=== PATIENT | female | born 1950 | race Caucasian/White ===

== ENCOUNTER 2017-07-10 18:31 | Inpatient (IN) | payer MEDICARE, MEDICAID ==
[~2017-07-10] VITALS: Ht 162.6 cm; Wt 113.1 kg
[2017-07-10 19:28] LABS: BASO # 0.1 x10^3/uL (0.0-0.2); BASO % 1 % (0-3); EOS # 0.3 x10^3/uL (0.0-0.7); EOS % 2 % (0-3); HEMATOCRIT 31.9 % (36.0-47.0); HEMOGLOBIN 10.1 g/dL (12.0-15.5); LYMPH # 3.5 x10^3/uL (1.0-4.8); LYMPH % 22 % (24-48); MEAN CORPUSCULAR HEMOGLOBIN 24 pg (25-35); MEAN CORPUSCULAR HGB CONC 32 g/dL (31-37); MEAN CORPUSCULAR VOLUME 77 fL (79-100); MONO # 1.3 x10^3/uL (0.0-1.1); MONO % 8 % (0-9); NEUT # 10.4 x10^3uL (1.8-7.7); NEUT % 67 % (31-73); PLATELET COUNT 473 x10^3/uL (140-400); RED BLOOD COUNT 4.16 x10^6/uL (3.50-5.40); RED CELL DISTRIBUTION WIDTH 18.2 % (11.5-14.5); WHITE BLOOD COUNT 15.6 x10^3/uL (4.0-11.0)
--- NOTE | 2017-07-10 19:30 | EKG ---
[address] [address] Test Date: 2017-07-10 Test Time: 19:15:13 Pat Name: RADHA AZEVEDO Department: Room: Gender: F [place] Tender: : 1950 Requested By: WESLY BLACKBURN Order Number: [id number] Reading MD: Claude Bañuelos MD Measurements Intervals [place] Rate: 83 P: 54 KS: 132 QRS: 0 QRSD: 94 T: 5 QT: 390 QTc: 459 Interpretive Statements SINUS RHYTHM Electronically Signed On 07-14-2017 16:42:41 CDT by Claude Bañuelos MD
[2017-07-10 19:35] LABS: CALCIUM 9.4 mg/dL (8.5-10.1); CREATININE 0.8 mg/dL (0.6-1.0); GFR 72.2; POTASSIUM 3.1 mmol/L (3.5-5.1)
[2017-07-10 19:43] LABS: CLARITY,URINE HAZY; COLOR,URINE YELLOW; GLUCOSE,URINE NEG (NEG)
[2017-07-10] MEDS ORDERED: ALPRAZolam 0.25 MG TABLET PO ONE (19:45)
[2017-07-10 19:46] LABS: BACTERIA,URINE FEW /HPF (0-FEW); BILIRUBIN,URINE NEG (NEG); NITRITE,URINE NEG (NEG); SQUAMOUS EPITHELIAL CELL,UR MANY /LPF; UROBILINOGEN,URINE 0.2 mg/dL (0.2 mg/dL)
[2017-07-10 19:47] LABS: HYALINE CASTS, URINE MOD /HPF
[2017-07-10] MEDS ORDERED: CONTRAST GIVEN MC PRN (20:45)
[2017-07-10] MEDS ORDERED: IOHEXOL 300 MG/ML 75 ML VIAL. IV ONE (20:45)
[2017-07-10 21:47] LABS: % LYMPHS 24 % (24-48); % MONOS 11 % (0-10); % SEGS 65 % (35-66)
[2017-07-10 21:50] LABS: PLT ESTIMATE INCREASED (ADEQUATE)
[2017-07-10 21:51] LABS: HYPOCHROMIA SLIGHT
[2017-07-10 21:53] LABS: ANISOCYTOSIS SLIGHT
[2017-07-10 21:59] LABS: STOMATOCYTES PRESENT; TARGET CELLS FEW
--- NOTE | 2017-07-10 22:02 | RAD ---
CT abdomen and pelvis with contrast 07/10/2017 Clinical indication: Severe abdominal pain, nausea and leukocytosis. COMPARISON: None. TECHNIQUE: Multiple CT images of the abdomen and pelvis were obtained following the intravenous and ministration of 75 mL Omnipaque 300. *One or more of the following individualized dose reduction techniques were utilized for this examination: 1. Automated exposure control. 2. Adjustment of the mA and/or kV according to patient size. 3. Use of iterative reconstruction technique. FINDINGS: Heart size is normal. Visualized lung bases are clear. Liver, gallbladder, spleen, adrenal glands are grossly unremarkable. Mild fatty atrophy of the pancreas. There are few bilateral renal hypodensities which are too small to definitively characterize, the largest in the medial superior pole left kidney measuring 0.6 cm series 2/image 28. No hydronephrosis. Abdominal aorta is normal in caliber with mild aortoiliac calcified atheromatous disease. Total colectomy and right lower quadrant ileostomy. There are few mildly dilated fluid-filled distal small bowel loops just proximal to the ileostomy with gas and fluid within the ostomy. No discrete transition point. No pneumatosis intestinalis or pneumoperitoneum. There is posterior displacement of the uterus consistent with the total colectomy. Mildly distended unopacified urinary bladder is unremarkable. There are few mildly prominent bilateral inguinal lymph nodes, likely reactive. Mild bilateral hip osteoarthritis. There is transitional lumbosacral sacral vertebral anatomy with partial sacralization at L5. Grade 1 anterolisthesis L3 on L4. Age-indeterminate moderate compression deformity at T12 with mild bony retropulsion and estimated 50 percent vertebral body height loss. There is an age-indeterminate mild L3 superior endplate compression deformity with estimated 20 percent edema body height loss no significant bony retropulsion. At L3-L4, disc degeneration and facet hypertrophy resulting in severe spinal canal narrowing. IMPRESSION: 1. Total colectomy and right lower quadrant ileostomy. 2. Mildly dilated distal small bowel loops proximal to the ileostomy site, however there is fluid and gas distal to the ostomy site, concerning for a low-grade partial small bowel obstruction and the ostomy may be a potential site. 3. Moderate T12 and mild L3 compression deformities which are age indeterminate. Correlation with point tenderness is recommended. 4. Disc degeneration and facet hypertrophy resulting in severe spinal canal narrowing at L3-L4. Electronically signed by: Greyson Durán MD (07/10/2017 9:59 PM) [facility]
[2017-07-10] MEDS ORDERED: IV NORMAL SALINE 1,000ML 1,000 ML IV ONE (22:15)
[2017-07-10] MEDS ORDERED: cefTRIAXone IV Push 1 GM VIAL. IVP ONE (22:30)
[2017-07-10] MEDS ORDERED: KETOROLAC 15 MG/ML VIAL. IV ONE (23:15)
[2017-07-10] MEDS ORDERED: POTASSIUM CHLORIDE 20 MEQ/15 ML ORAL LIQUID. PO ONE (23:45)
[2017-07-11] MEDS ORDERED: MORPHINE SULFATE 2 MG/ML DISP.SYRIN. IV PRN
[2017-07-11] MEDS ORDERED: IV NORMAL SALINE 1,000ML 1,000 ML IV SCH
--- NOTE | 2017-07-11 00:35 | NUR ---
Pt was admitted from ER to [facility] room 125 via [facility], accompanied by EMS and nursing staff. Pt transferred from [facility] to bed x3 assist. Admission assessment completed. Pt here for UTI, Abd pain & Depression. Pt had a SA attempt on 07/05/17 after having amputation sx on her left distal foot. Pt took scissors to bilateral wrist afterwards but claims it was "a reaction to my anesthesia from my foot surgery. I called for help right after I did it. I feel bad about it and I am a [place] woman." Pt currently denies any SI/SA. Pt was admitted to [facility] recently for depression and SA from 07/05/17-07/08/17. Pt has right quadrant Ostomy but hasn't had a BM for "over 2 days." Site/bag changed, no stool noted in bag. Wound photos taken of bilateral wrist, left amputation site and ostomy site. Home medications & health history reviewed. IVF started per order. Pt lives at [facility] and has been a resident "for about 9 yeras." SCDs for VTE. Pt UTD on pneumonia vaccine. Pt was given written information regarding hospital policies, unit procedures and contact persons. Valuables were checked r/t suicide precautions. Call light within reach. Pt is NPO r/t CT Abd. showing ? partial SBO. Wound care, Case management & Dr Hill consulted. Pt placed on Q15min check based on medium Suicide risk Lethality assessment.
[2017-07-11 00:49] VITALS: BP 112/71
[2017-07-11] MEDS ORDERED: ONDANSETRON PF 4 MG/2 ML VIAL. IV PRN ×2 (02:00)
[2017-07-11] MEDS: IV NORMAL SALINE 1,000ML 1,000 ML IV SCH ×2 (02:00→12:44)
[2017-07-11] MEDS: MORPHINE SULFATE 4 MG/ML DISP.SYRIN. IV PRN ×5 (02:10→20:44)
[2017-07-11] MEDS: LORazepam 2 MG/ML VIAL IV PRN ×4 (02:10→17:41)
[2017-07-11] MEDS ORDERED: ATOR10TA60 PO (02:29)
[2017-07-11] MEDS ORDERED: GABA600T2 PO (02:29)
[2017-07-11] MEDS ORDERED: ROFL500T7 PO (02:29)
[2017-07-11] MEDS ORDERED: HYDR12.53 PO (02:29)
[2017-07-11] MEDS ORDERED: FLUT12HF3 IH (02:29)
[2017-07-11] MEDS ORDERED: POLY15DR27 OU (02:29)
[2017-07-11] MEDS ORDERED: SOLI10TA2 PO (02:29)
[2017-07-11] MEDS ORDERED: PANT20TA58 PO (02:29)
[2017-07-11] MEDS ORDERED: BUSP5TAB PO (02:29)
[2017-07-11] MEDS ORDERED: LORA10TA68 PO (02:29)
[2017-07-11] MEDS ORDERED: FLUT9.9S NS (02:29)
[2017-07-11] MEDS ORDERED: METO50TA4 PO (02:29)
[2017-07-11] MEDS ORDERED: HYDR-2762 PO (02:35)
[2017-07-11] MEDS ORDERED: TIZA4TAB8 PO (02:35)
[2017-07-11] MEDS ORDERED: QUET25TA PO (02:35)
[2017-07-11] MEDS ORDERED: TRAZ-90 PO (02:35)
[2017-07-11] MEDS ORDERED: DULO30CA2 PO (02:35)
[2017-07-11] MEDS ORDERED: QUET100T4 PO (02:35)
[2017-07-11] MEDS ORDERED: SODI45SP4 NS (02:45)
[2017-07-11] MEDS ORDERED: IPRA3AMP NEB (02:45)
[2017-07-11] MEDS ORDERED: MAG360OR24 PO (02:45)
[2017-07-11] MEDS ORDERED: PROM25TA10 PO (02:45)
[2017-07-11] MEDS ORDERED: GUAI600T47 PO (02:45)
[2017-07-11] MEDS ORDERED: ACET325T9 PO (02:45)
[2017-07-11] MEDS ORDERED: GUAI-66 PO (02:45)
[2017-07-11] MEDS ORDERED: ALBU6.7H IH (02:45)
[2017-07-11] MEDS ORDERED: MAGN400O7 PO (02:45)
[2017-07-11] MEDS ORDERED: NYST60PO TP (02:56)
[2017-07-11] MEDS ORDERED: HYDR453.3 TP (02:56)
[2017-07-11] MEDS ORDERED: PALI117D IM (02:56)
[2017-07-11] MEDS ORDERED: AMMO385C5 TP (02:56)
[2017-07-11] MEDS ORDERED: MENT118G TP (02:56)
--- NOTE | 2017-07-11 05:17 | PHYS DOC ---
Past History Past Medical History: Anxiety, Depression, Schizophrenia Alcohol Use: None Drug Use: None Adult General Chief Complaint Chief Complaint: PSYCH EVALUATION HPI HPI 66-year-old female with a history of anxiety depression and bipolar disease schizophrenia insomnia and severe ulcerative colitis which required a total colectomy and ileostomy. Now presents to the emergency department for clearance for psychiatric evaluation. Patient has been depressed and recently used scissors to make some lacerations on her wrist. These were sutured have been healing well. Patient complains of mid abdominal pain and thinks that her ileostomy may be "blocked" as it has not had as much output as she would expect over the last 2 days. Patient also had a surgery on her left foot within the last week to remove some devitalized toes. The surgical site was due for a wound check tomorrow but she states her postoperative course has been unremarkable. Patient currently denies any suicidality and states she has no intent to injure herself again Review of Systems Review of Systems Constitutional: Denies fever or chills [] Eyes: Denies change in visual acuity, redness, or eye pain [] HENT: Denies nasal congestion or sore throat [] Respiratory: Denies cough or shortness of breath [] Cardiovascular: No additional information not addressed in HPI [] GI: Denies abdominal pain, nausea, vomiting, bloody stools or diarrhea [] : Denies dysuria or hematuria [] Musculoskeletal: Denies back pain or joint pain [] Integument: Denies rash or skin lesions [] Neurologic: Denies headache, focal weakness or sensory changes [] Endocrine: Denies polyuria or polydipsia [] All other systems were reviewed and found to be within normal limits, except as documented in this note. Current Medications Current Medications Current Medications Medications (Trade) Dose Ordered Sig/Deion Start Time Stop Time Status Last Admin Dose Admin Alprazolam (Xanax) 0.5 mg 1X ONCE 07/10/17 19:45 07/10/17 19:46 DC 07/10/17 19:52 0.5 MG Ceftriaxone Sodium 1 gm/ Sodium Chloride 50 ml @ 100 mls/hr 1X ONCE 07/10/17 22:15 07/10/17 22:44 UNV Ceftriaxone Sodium (Rocephin) 1 gm 1X ONCE 07/10/17 22:30 07/10/17 22:31 DC 07/10/17 22:56 1 GM Info (Do NOT chart on this entry -- for MONITORING) 1 each PRN DAILY PRN 07/10/17 20:45 07/12/17 20:44 Iohexol (Omnipaque 300 Mg/ml) 75 ml 1X ONCE 07/10/17 20:45 07/10/17 20:46 DC 07/10/17 20:54 75 ML Ketorolac Tromethamine (Toradol) 15 mg 1X ONCE 07/10/17 23:15 07/10/17 23:29 DC 07/10/17 23:15 15 MG Sodium Chloride 1,000 ml @ 125 mls/hr 1X ONCE 07/10/17 22:15 07/11/17 06:14 07/10/17 22:57 125 MLS/HR Allergies Allergies Allergies Coded Allergies Type Severity Reaction Last Updated Verified oxycodone Allergy Mild 07/10/17 Yes Physical Exam Physical Exam Constitutional: Well developed, well nourished, no acute distress, non-toxic appearance. [] HENT: Normocephalic, atraumatic, bilateral external ears normal, oropharynx moist, no oral exudates, nose normal. [] Eyes: PERRLA, EOMI, conjunctiva normal, no discharge. [] Neck: Normal range of motion, no tenderness, supple, no stridor. [] Cardiovascular:Heart rate regular rhythm, no murmur [] Lungs & Thorax: Bilateral breath sounds clear to auscultation [] Abdomen: Bowel sounds normal, soft, no tenderness, no masses, no pulsatile masses. [] Skin: Warm, dry, no erythema, no rash. Healing wrist lacerations with sutures in place. [] Back: No tenderness, no CVA tenderness. [] Extremities: No tenderness, no cyanosis, no clubbing, ROM intact, no edema. Dressing on left foot removed for inspection. Surgical wound clean and dry and intact with no dehiscence or purulent drainage. No fluctuance or crepitus erythema or warmth.[] Neurologic: Alert and oriented X 3, normal motor function, normal sensory function, no focal deficits noted. [] Psychologic: Depressed mood and flat affect, judgement normal Current Patient Data Vital Signs Vital Signs Date Time Temp Pulse Resp B/P (MAP) Pulse Ox O2 Delivery O2 Flow Rate FiO2 07/11/17 02:45 16 Room Air 07/11/17 00:49 98.1 87 112/71 (85) 94 Lab Results Laboratory Tests Test 07/10/17 19:08 07/11/17 00:30 White Blood Count 15.6 x10^3/uL (4.0-11.0) H Red Blood Count 4.16 x10^6/uL (3.50-5.40) Hemoglobin 10.1 g/dL (12.0-15.5) L Hematocrit 31.9 % (36.0-47.0) L Mean Corpuscular Volume 77 fL (79-100) L Mean Corpuscular Hemoglobin 24 pg (25-35) L Mean Corpuscular Hemoglobin Concent 32 g/dL (31-37) Red Cell Distribution Width 18.2 % (11.5-14.5) H Platelet Count 473 x10^3/uL (140-400) H Neutrophils (%) (Auto) 67 % (31-73) Lymphocytes (%) (Auto) 22 % (24-48) L Monocytes (%) (Auto) 8 % (0-9) Eosinophils (%) (Auto) 2 % (0-3) Basophils (%) (Auto) 1 % (0-3) Neutrophils # (Auto) 10.4 x10^3uL (1.8-7.7) H Lymphocytes # (Auto) 3.5 x10^3/uL (1.0-4.8) Monocytes # (Auto) 1.3 x10^3/uL (0.0-1.1) H Eosinophils # (Auto) 0.3 x10^3/uL (0.0-0.7) Basophils # (Auto) 0.1 x10^3/uL (0.0-0.2) Segmented Neutrophils % 65 % (35-66) Lymphocytes % 24 % (24-48) Monocytes % 11 % (0-10) H Platelet Estimate Increased (ADEQUATE) Hypochromasia Slight Anisocytosis Slight Target Cells Few Stomatocytes Present Urine Collection Type Unknown Urine Color Yellow Urine Clarity Hazy Urine pH 8.5 Urine Specific [place] 1.015 Urine Protein 30 mg/dl (NEG-TRACE) Urine Glucose (UA) Neg mg/dL (NEG) Urine Ketones (Stick) 15 mg/dL (NEG) Urine Blood Trace (NEG) Urine Nitrite Neg (NEG) Urine Bilirubin Neg (NEG) Urine Urobilinogen Dipstick 0.2 mg/dL (0.2 mg/dL) Urine Leukocyte Esterase Small (NEG) Urine RBC 6-10 /HPF (0-2) Urine WBC 5-10 /HPF (0-4) Urine Squamous Epithelial Cells Many /LPF Urine Bacteria Few /HPF (0-FEW) Urine Hyaline Casts Mod /HPF Urine Mucus Mod /LPF Sodium Level 139 mmol/L (136-145) Potassium Level 3.1 mmol/L (3.5-5.1) L Chloride Level 97 mmol/L (98-107) L Carbon Dioxide Level 30 mmol/L (21-32) Anion Gap 12 (6-14) Blood Urea Nitrogen 6 mg/dL (7-20) L Creatinine 0.8 mg/dL (0.6-1.0) Estimated GFR (Cockcroft-Gault) 72.2 Glucose Level 131 mg/dL (70-99) H Calcium Level 9.4 mg/dL (8.5-10.1) Troponin I Quantitative < 0.017 ng/mL (0-0.055) Lactic Acid Level 1.6 mmol/L (0.4-2.0) EKG EKG EKG with normal sinus rhythm at 83 normal axis no STEMI interpreted by oh Radiology/Procedures Radiology/Procedures [] Course & Med Decision Making Course & Med Decision Making Pertinent Labs and Imaging studies reviewed. (See chart for details) Patient depressed with recent self injury but very clear that she is not suicidal currently and has no intent for self injury. White blood cell count elevated at 15.6. Mild mid abdominal tenderness and patient describes what she perceives as some decreased ileostomy output so CT abdomen and pelvis done. CT suggestive of possible early partial small bowel obstruction. Urinalysis consistent with infection so culture done. Rocephin administered. Blood and urine Cultures Pending. Case discussed with Dr. Anderson hospitalist on-call who is aware the history and findings accepts the patient for inpatient admission to a [facility] bed. [] Dragon Disclaimer Dragon Disclaimer This electronic medical record was generated, in whole or in part, using a voice recognition dictation system. Departure Departure: Impression: Primary Impression: UTI (urinary tract infection) Additional Impression: Abdominal pain Disposition: ADMITTED INPATIENT Admitting Physician: Saman Anderson Condition: GUARDED Referrals: NON,STAFF (PCP) Problem Qualifiers WESLY BLACKBURN MD Jul 11, 2017 05:17
[2017-07-11 06:25] VITALS: BP 126/75
[2017-07-11 06:56] LABS: BASO # 0.1 x10^3/uL (0.0-0.2); BASO % 1 % (0-3); EOS # 0.4 x10^3/uL (0.0-0.7); EOS % 4 % (0-3); HEMATOCRIT 28.8 % (36.0-47.0); HEMOGLOBIN 9.2 g/dL (12.0-15.5); LYMPH # 3.1 x10^3/uL (1.0-4.8); LYMPH % 27 % (24-48); MEAN CORPUSCULAR HEMOGLOBIN 24 pg (25-35); MEAN CORPUSCULAR HGB CONC 32 g/dL (31-37); MEAN CORPUSCULAR VOLUME 77 fL (79-100); MONO # 1.1 x10^3/uL (0.0-1.1); MONO % 10 % (0-9); NEUT # 6.6 x10^3uL (1.8-7.7); NEUT % 58 % (31-73); PLATELET COUNT 427 x10^3/uL (140-400); RED BLOOD COUNT 3.76 x10^6/uL (3.50-5.40); RED CELL DISTRIBUTION WIDTH 18.1 % (11.5-14.5); WHITE BLOOD COUNT 11.3 x10^3/uL (4.0-11.0)
[2017-07-11 07:05] LABS: CALCIUM 8.6 mg/dL (8.5-10.1); CREATININE 0.6 mg/dL (0.6-1.0); GFR 100.6
[2017-07-11 10:39] VITALS: BP 117/74
[2017-07-11 15:16] VITALS: BP 123/56
--- NOTE | 2017-07-11 16:45 | NUR ---
wound care spoke with BERNADETTE Rodriguez and patient being transferred to [place], wound care will f/u with patient at [place].
[2017-07-11] MEDS ORDERED: POTASSIUM CL 40MEQ IN 0.9%NACL 1,000 ML IV SCH (17:00)
[2017-07-11] MEDS ORDERED: POLYVINYL ALCOHOL 1.4% OPHTH SOLUTION 15ML BOTTLE. OU PRN (17:45)
[2017-07-11] MEDS ORDERED: PROMETHAZINE 25 MG TABLET. PO PRN (17:45)
[2017-07-11] MEDS ORDERED: IPRATRPIUM/ALBUTEROL 0.5/2.5MG 3 ML NEBU. NEB PRN (17:45)
[2017-07-11] MEDS ORDERED: ACETAMINOPHEN 325 MG TABLET PO PRN (17:45)
[2017-07-11] MEDS ORDERED: guaiFENesin 300 MG/15 ML LIQUID PO PRN (17:45)
[2017-07-11] MEDS ORDERED: NON FORMULARY ITEM (Menthol (Biofreeze) 1 APP) TP PRN (17:45)
[2017-07-11] MEDS ORDERED: ALBUTEROL SULFATE 8GM INHALER. IH PRN (17:45)
[2017-07-11] MEDS ORDERED: HYDROCORTISONE 2.5% TOPICAL CREAM 30GM TUBE. TP PRN (17:45)
[2017-07-11] MEDS ORDERED: NYSTATIN TOPICAL POWDER 15GM BOTTLE. TP PRN (17:45)
[2017-07-11] MEDS ORDERED: MAGNESIUM HYDROXIDE 2,400 MG/30 ML ORAL.SUSP. PO PRN (17:45)
[2017-07-11] MEDS ORDERED: SODIUM CHLORIDE 0.65% NASAL SPRAY 45ML BOTTLE. NS PRN (17:45)
[2017-07-11] MEDS ORDERED: MAG HYDROX/AL HYDROX/SIMETH 30 ML ORAL.SUSP PO PRN (18:15)
--- NOTE | 2017-07-11 18:25 | PDOC ---
Exam Note: Brandon Note: Please also refer to the separate dictated note~for this date of service dictated separately.~Patient seen individually. Discussed the patient with Nursing staff reviewed the chart.~Reviewed interim history and current functioning. Reviewed vital signs,~Labs/ Radiology~and current medications noted below. Continue current treatment with the changes noted in the dictated addendum note Assessment: Vital Signs: Vital Signs Date Time Temp Pulse Resp B/P (MAP) Pulse Ox O2 Delivery O2 Flow Rate FiO2 07/11/17 17:10 16 07/11/17 16:37 Room Air 07/11/17 15:16 97.2 99 123/56 (78) 91 I&O Intake and Output 07/11/17 07:00 Intake Total 325 ml Balance 325 ml Intake Oral 0 ml IV Total 325 ml Labs: Laboratory Tests Test 07/10/17 19:08 07/11/17 00:30 07/11/17 06:45 White Blood Count 15.6 x10^3/uL (4.0-11.0) H 11.3 x10^3/uL (4.0-11.0) H Red Blood Count 4.16 x10^6/uL (3.50-5.40) 3.76 x10^6/uL (3.50-5.40) Hemoglobin 10.1 g/dL (12.0-15.5) L 9.2 g/dL (12.0-15.5) L Hematocrit 31.9 % (36.0-47.0) L 28.8 % (36.0-47.0) L Mean Corpuscular Volume 77 fL (79-100) L 77 fL (79-100) L Mean Corpuscular Hemoglobin 24 pg (25-35) L 24 pg (25-35) L Mean Corpuscular Hemoglobin Concent 32 g/dL (31-37) 32 g/dL (31-37) Red Cell Distribution Width 18.2 % (11.5-14.5) H 18.1 % (11.5-14.5) H Platelet Count 473 x10^3/uL (140-400) H 427 x10^3/uL (140-400) H Neutrophils (%) (Auto) 67 % (31-73) 58 % (31-73) Lymphocytes (%) (Auto) 22 % (24-48) L 27 % (24-48) Monocytes (%) (Auto) 8 % (0-9) 10 % (0-9) H Eosinophils (%) (Auto) 2 % (0-3) 4 % (0-3) H Basophils (%) (Auto) 1 % (0-3) 1 % (0-3) Neutrophils # (Auto) 10.4 x10^3uL (1.8-7.7) H 6.6 x10^3uL (1.8-7.7) Lymphocytes # (Auto) 3.5 x10^3/uL (1.0-4.8) 3.1 x10^3/uL (1.0-4.8) Monocytes # (Auto) 1.3 x10^3/uL (0.0-1.1) H 1.1 x10^3/uL (0.0-1.1) Eosinophils # (Auto) 0.3 x10^3/uL (0.0-0.7) 0.4 x10^3/uL (0.0-0.7) Basophils # (Auto) 0.1 x10^3/uL (0.0-0.2) 0.1 x10^3/uL (0.0-0.2) Segmented Neutrophils % 65 % (35-66) Lymphocytes % 24 % (24-48) Monocytes % 11 % (0-10) H Platelet Estimate Increased (ADEQUATE) Hypochromasia Slight Anisocytosis Slight Target Cells Few Stomatocytes Present Urine Collection Type Unknown Urine Color Yellow Urine Clarity Hazy Urine pH 8.5 Urine Specific [place] 1.015 Urine Protein 30 mg/dl (NEG-TRACE) Urine Glucose (UA) Neg mg/dL (NEG) Urine Ketones (Stick) 15 mg/dL (NEG) Urine Blood Trace (NEG) Urine Nitrite Neg (NEG) Urine Bilirubin Neg (NEG) Urine Urobilinogen Dipstick 0.2 mg/dL (0.2 mg/dL) Urine Leukocyte Esterase Small (NEG) Urine RBC 6-10 /HPF (0-2) Urine WBC 5-10 /HPF (0-4) Urine Squamous Epithelial Cells Many /LPF Urine Bacteria Few /HPF (0-FEW) Urine Hyaline Casts Mod /HPF Urine Mucus Mod /LPF Sodium Level 139 mmol/L (136-145) 137 mmol/L (136-145) Potassium Level 3.1 mmol/L (3.5-5.1) L 3.0 mmol/L (3.5-5.1) L Chloride Level 97 mmol/L (98-107) L 101 mmol/L (98-107) Carbon Dioxide Level 30 mmol/L (21-32) 26 mmol/L (21-32) Anion Gap 12 (6-14) 10 (6-14) Blood Urea Nitrogen 6 mg/dL (7-20) L 6 mg/dL (7-20) L Creatinine 0.8 mg/dL (0.6-1.0) 0.6 mg/dL (0.6-1.0) Estimated GFR (Cockcroft-Gault) 72.2 100.6 Glucose Level 131 mg/dL (70-99) H 97 mg/dL (70-99) Calcium Level 9.4 mg/dL (8.5-10.1) 8.6 mg/dL (8.5-10.1) Troponin I Quantitative < 0.017 ng/mL (0-0.055) Lactic Acid Level 1.6 mmol/L (0.4-2.0) Current Medications: Meds: Current Medications Alprazolam (Xanax) 0.5 mg 1X ONCE PO Last administered on 07/10/17at 19:52; Start 07/10/17 at 19:45; Stop 07/10/17 at 19:46; Status DC Iohexol (Omnipaque 300 Mg/ml) 75 ml 1X ONCE IV Last administered on 07/10/17at 20:54; Start 07/10/17 at 20:45; Stop 07/10/17 at 20:46; Status DC Info (Do NOT chart on this entry -- for MONITORING) 1 each PRN DAILY PRN MC SEE COMMENTS; Start 07/10/17 at 20:45; Stop 07/12/17 at 20:44 Ceftriaxone Sodium 1 gm/ Sodium Chloride 50 ml @ 100 mls/hr 1X ONCE IV ; Start 07/10/17 at 22:15; Stop 07/10/17 at 22:44; Status UNV Sodium Chloride 1,000 ml @ 125 mls/hr 1X ONCE IV Last administered on at 22:57; Start 07/10/17 at 22:15; Stop 07/11/17 at 17:36; Status DC Ceftriaxone Sodium (Rocephin) 1 gm 1X ONCE IVP Last administered on 07/10/17at 22:56; Start 07/10/17 at 22:30; Stop 07/10/17 at 22:31; Status DC Ketorolac Tromethamine (Toradol) 15 mg 1X ONCE IV Last administered on at 23:15; Start 07/10/17 at 23:15; Stop 07/10/17 at 23:29; Status DC Potassium Chloride (KCl Oral Soln) 40 meq 1X ONCE PO Last administered on at 00:13; Start 07/10/17 at 23:45; Stop 07/10/17 at 23:46; Status DC Ondansetron HCl (Zofran) 4 mg PRN Q4HRS PRN IV NAUSEA/VOMITING; Start 07/11/17 at 00:00; Stop 07/11/17 at 00:12; Status DC Morphine Sulfate (Morphine 2mg Syringe) 2 mg PRN Q2HR PRN IV PAIN; Start at 00:00; Stop 07/11/17 at 00:12; Status DC Sodium Chloride 1,000 ml @ 125 mls/hr Q8H IV Last administered on 07/11/17at 00: 52; Start 07/11/17 at 00:00; Stop 07/11/17 at 00:12; Status DC Morphine Sulfate (Morphine 4mg Syringe) 2 mg PRN Q2HR PRN IV PAIN Last administered on 07/11/17at 16:37; Start 07/11/17 at 02:00 Ondansetron HCl (Zofran) 4 mg PRN Q6HRS PRN IV NAUSEA/VOMITING; Start 07/11/17 at 02:00 Sodium Chloride 1,000 ml @ 100 mls/hr Q10H IV Last administered on 07/11/17at 12 :44; Start 07/11/17 at 02:00 Lorazepam (Ativan) 2 mg PRN Q4HRS PRN IV ANXIETY / AGITATION Last administered on 07/11/17at 17:41; Start 07/11/17 at 02:00 Potassium Chloride/Sodium Chloride 1,000 ml @ 75 mls/hr [id number] IV ; Start 07/11 at 17:00 Acetaminophen (Tylenol) 650 mg PRN Q6HRS PRN PO PAIN / TEMP; Start 07/11/17 at 17:45 Albuterol Sulfate (Ventolin Hfa) 2 puff PRN QID PRN IH FOR ASTHMA; Start at 17:45; Status UNV Lactic Acid (Lac-Hydrin) 1 [place] BID TP ; Start 07/11/17 at 21:00 Atorvastatin Calcium (Lipitor) 10 mg DAILY PO ; Start 07/12/17 at 09:00 Buspirone HCl (Buspar) 5 mg TID PO ; Start 07/11/17 at 21:00 Duloxetine HCl (Cymbalta) 30 mg DAILY PO ; Start 07/12/17 at 09:00 Guaifenesin (Robitussin) 300 mg PRN Q4HRS PRN PO COUGH; Start 07/11/17 at 17:45 Guaifenesin (Guaifenesin) 400 mg PRN Q4HRS PRN PO CONGESTION; Start 07/11/17 at 17:45 Hydrochlorothiazide (Microzide) 12.5 mg DAILY PO ; Start 07/12/17 at 09:00 Acetaminophen/ Hydrocodone Bitart (Lortab 7.5/325) 1 tab QID PO ; Start 07/11/17 at 21:00 Hydrocortisone (Cortaid) 1 [place] PRN TID PRN TP RASH; Start 07/11/17 at 17:45 Albuterol/ Ipratropium (Duoneb) 3 ml PRN Q4HRS PRN NEB COPD; Start 07/11/17 at 17:45; Status UNV Magnesium Hydroxide (Milk Of Magnesia) 2,400 mg PRN Q6HRS PRN PO CONSTIPATION; Start 07/11/17 at 17:45 Metoprolol Succinate (Toprol Xl) 50 mg DAILY PO ; Start 07/12/17 at 09:00 Nystatin (Nystop) 1 [place] PRN BID PRN TP CANDIDIASIS; Start 07/11/17 at 17:45 Artificial Tears (Artificial Tears) 1 drop PRN BID PRN OU DRY EYES; Start at 17:45 Promethazine HCl (Phenergan) 25 mg PRN TID PRN PO NAUSEA/VOMITING; Start at 17:45 Quetiapine Fumarate (SEROquel) 25 mg BIDWMEALS PO ; Start 07/12/17 at 08:00 Quetiapine Fumarate (SEROquel) 100 mg QHS PO ; Start 07/11/17 at 21:00 Sodium Chloride (Saline Mist Nasal) 1 [place] PRN TID PRN NS NASAL CONGESTION; Start 07/11/17 at 17:45 Tizanidine HCl (Zanaflex) 4 mg TID PO ; Start 07/11/17 at 21:00 Trazodone HCl (Desyrel) 200 mg HS PO ; Start 07/11/17 at 21:00 Fluticasone Propionate (Flonase) 2 spray DAILY NS ; Start 07/12/17 at 09:00 Non-Formulary Medication (Fluticasone/ Salmeterol (Advair Hfa 230-21 Mcg Inhaler )) 2 puff BID IH ; Start 07/11/17 at 21:00; Status UNV Gabapentin (Neurontin) 600 mg QID PO ; Start 07/11/17 at 21:00 Cetirizine HCl (ZyrTEC) 10 mg DAILY PO ; Start 07/12/17 at 09:00 Al Hydroxide/Mg Hydroxide (Mylanta Plus Xs) 30 ml PRN Q2HR PRN PO DYSPEPSIA; Start 07/11/17 at 18:15 Non-Formulary Medication (Menthol (Biofreeze)) 1 [place] PRN TID PRN TP MUSCLE PAIN ; Start 07/11/17 at 17:45; Status UNV Pantoprazole Sodium (Protonix) 40 mg DAILY PO ; Start 07/12/17 at 09:00 Oxybutynin Chloride (Ditropan) 5 mg [id number] PO ; Start 07/12/17 at 09:00 Active Scripts Active Reported Invega Sustenna (Paliperidone Palmitate) 117 Mg/0.75 Ml Disp.syrin 0.75 Ml IM Q4WK Nystop (Nystatin) 60 Gm Powder 1 [place] TP PRN BID PRN Hydrocortisone 453.6 Gm Cream..g. 1 [place] TP PRN TID PRN Ammonium Lactate 385 Gm Cream..g. 1 [place] TP BID Biofreeze (Menthol) 118 Ml Gel..ml. 1 [place] TP PRN TID PRN Promethazine Hcl 25 Mg Tablet 25 Mg PO PRN TID PRN Geeta-Tussin (Guaifenesin) 100 Mg/5 Ml Liquid 15 Ml PO PRN Q4HRS PRN Tylenol (Acetaminophen) 325 Mg Tablet 650 Mg PO PRN Q6HRS PRN Proventil Hfa Inhaler (Albuterol Sulfate) 6.7 Gm Hfa.aer.ad 2 Puff IH PRN QID PRN Milk Of Magnesia (Magnesium Hydroxide) 400 Mg/5 Ml Oral.susp 2,400 Mg PO PRN Q6HRS PRN Alum-Mag Hydroxide-Simeth Liq (Mag Hydrox/Al Hydrox/Simeth) 360 Ml Oral.susp 30 Ml PO PRN Q2HR PRN Duoneb 0.5-3(2.5) Mg/3 Ml (Albuterol/Ipratropium) 3 Ml Ampul.neb 3 Ml NEB PRN Q4HRS PRN Mucinex (Guaifenesin) 600 Mg Tablet.er 400 Mg PO PRN Q4HRS PRN Saline Mist (Sodium Chloride) 44 Ml [place] 1 Spr NS PRN TID PRN Quetiapine Fumarate 25 Mg Tablet 25 Mg PO BIDWMEALS MDD MOOD STABILIZER Seroquel (Quetiapine Fumarate) 100 Mg Tablet 1 Tab PO QHS Hydrocodone-Apap 7.5-325 (Hydrocodone Bit/Acetaminophen) 1 Each Tablet 1 Tab PO QID Trazodone Hcl 100 Mg Tablet 200 Mg PO HS Zanaflex (Tizanidine HCl) 4 Mg Tablet 4 Mg PO TID Cymbalta (Duloxetine Hcl) 30 Mg Capsule.dr 30 Mg PO DAILY Protonix (Pantoprazole Sodium) 20 Mg Tablet.dr 20 Mg PO DAILY Buspirone Hcl 5 Mg Tablet 5 Mg PO TID Toprol Xl (Metoprolol Succinate) 50 Mg Tab.er.24h 50 Mg PO DAILY Flonase Allergy Relief (Fluticasone Propionate) 9.9 Ml [place].susp 2 Sprays NS DAILY Claritin (Loratadine) 10 Mg Tablet 10 Mg PO DAILY Artificial Tears (Polyvinyl Alcohol) 15 Ml Drops 1 Drop OU BID PRN Vesicare (Solifenacin Succinate) 10 Mg Tablet 10 Mg PO DAILY Hydrochlorothiazide Capsule (Hydrochlorothiazide) 12.5 Mg Capsule 12.5 Mg PO DAILY Daliresp (Roflumilast) 500 Mcg Tablet 500 Mcg PO DAILY Atorvastatin Calcium 10 Mg Tablet 10 Mg PO DAILY Gabapentin 600 Mg Tablet 600 Mg PO QID Advair Hfa 230-21 Mcg Inhaler (Fluticasone/Salmeterol) 12 Gm Hfa.aer.ad 2 Puff IH BID I have reviewed the current psychotropics carefully including drug interactions. Risk benefit ratio favors no change other than as noted in my dictated progress note. Diagnosis: Problems: (1) Anxiety disorder (2) Major depressive disorder, recurrent episode (3) Impulse control disorder TAYO STROUD MD Jul 11, 2017 18:25
[2017-07-11] MEDS ORDERED: ALBUTEROL SULFATE 2.5 MG/3 ML NEBU. NEB PRN (18:30)
--- NOTE | 2017-07-11 18:44 | SSS ---
ADMIT DATE: 07/11/2017 HISTORY OF PRESENT ILLNESS: The patient is a 66-year-old female patient, a resident at [facility] in [place], [place] who was brought to the Emergency Room for evaluation and as far as medical stability to be admitted and cleared to be admitted to [facility]; however, based on the account that she has been depressed and recently used scissors to make some laceration on her wrist. These were sutured and have been healing well. She did also complain of mid abdominal pain and thinks her ileostomy may be AV blocked as it has not had as much output she would expect over the last 2 days. She also has what seemed to be a left transmetatarsal amputation last week to remove some devitalized toes and basically while in the Emergency Room, she denied any suicidality and stated that she has no intent to injure herself and in the Emergency Room, she was evaluated and was found to have leukocytosis with a white cell count of 15,600 and her lab work showed that she has hypokalemia and was admitted at [address] [place] [address] for medical stabilization. Her CT scan of the abdomen showed mildly dilated distal small bowel loops proximal to the ileostomy site; however, there is fluid and gas distal to the ileostomy site concerning for a low-grade partial small-bowel obstruction and ostomy may be a potential site. When I saw her this afternoon, she obviously continued to complain of abdominal pain and stated that she has not had emptied her bag for the last 4 days, obviously hypokalemia is not helping and a decision was made to transfer her to [facility] to consult the surgical team there for obviously to replenish her potassium. I did start her on normal saline with 40 mEq of potassium chloride. I will increase her IV, change antibiotics to Zosyn, and will consult the surgical team. PAST MEDICAL HISTORY: To the best of my ability is significant for hyperlipidemia, hypertension, degenerative disk disease, rheumatoid arthritis. She has also history of ulcerative colitis for which she underwent total colectomy and ileostomy. She seemed at least clinically to have Parkinson's disease. She is known to have depression and anxiety as well as what seemed to be COPD, although the patient herself denied any drugs. Denied any history of smoking but she did smoke up until she was 33 years old according to her. PAST SURGICAL HISTORY: Significant for total colectomy and ileostomy, left tibia fracture, status post open reduction and internal fixation complicated by osteomyelitis. She has bilateral cataract extraction, tonsillectomy and left transmetatarsal amputation. ALLERGIES: She has no known drug allergies. FAMILY HISTORY: She has 1 older sister and 1 younger sister that does not keep in touch with. Her father and mother are both and did not know when and why. SOCIAL HISTORY: She is , has no children. She smoked up until the age of [age] years old. She does not drink alcohol or use recreational drugs. 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 REVIEW OF SYSTEMS: Initially, the patient had bilateral cataract extraction, but denied any glaucoma or macular degeneration. 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 Denied any stuffy nose, nosebleed or postnasal drip. Denied any sore throat, sore tongue, toothache, hoarseness of voice or difficulty swallowing. Denied any nausea, vomiting, diarrhea or constipation. Denied any hematemesis, melena or hematochezia. In fact, she has not changed her ileostomy bag for almost 4 days according to her. Denied any dysuria, frequency or hematuria. Denied any chest pain, shortness of breath, orthopnea, paroxysmal nocturnal dyspnea. Denied any cough, phlegm or hemoptysis. PHYSICAL EXAMINATION: GENERAL: When I examined her, she was pale, but no jaundice, cyanosis, or thyromegaly. No jugular venous distention. No limb edema. VITAL SIGNS: Her heart rate was 99, blood pressure was 123/56, temperature was 97.2, respiratory rate 22, and oxygen saturation was 91% on room air. HEENT: Showed that she is normocephalic, atraumatic. NECK: Supple. HEART: Showed normal first and second heart sounds with no gallop, rub or murmur. CHEST: Clear to auscultation. No crepitation or rhonchi. ABDOMEN: Distended, soft with an ileostomy in the right lower quadrant. There is marked tenderness in the right lower quadrant; however, there is no guarding or rigidity. No organomegaly and bowel sounds are sluggish. NEUROLOGIC: She is awake, alert, responding appropriately. Cranial nerves intact. EXTREMITIES: She moves extremities without difficulty. She stated she ambulates with a walker. LABORATORY DATA: Her lab work on admission showed a serum sodium 139, potassium 3.1, chloride 97, bicarbonate 30, anion gap of 12, BUN 6, creatinine 0.8, estimated GFR was 72 mL per minute. Her glucose 131, calcium was 9.7, lactic acid was 1.6. Her white cell count on admission 15,600, hemoglobin 10, hematocrit 32, MCV 77, and platelet count of ____. Her urinalysis showed the urine was yellow, hazy with a pH of 8.5, specific gravity of 1.015. There was a small amount of protein, negative for glucose, trace of ketones, trace of blood, negative for nitrite. There was small amount of leukocyte esterase, 6-10 rbc's, 5-10 wbc's and very few bacteria. The patient has a CT scan of the abdomen and pelvis showed that liver, gallbladder, spleen, adrenal glands are grossly unremarkable. Mild fatty atrophy of the pancreas. There are few bilateral renal hypodensities, which are too small to definitely characterize. The largest in the medial superior pole of the left kidney measuring 0.6 cm ____. Abdominal aorta is normal in caliber with mild aortoiliac calcified atheromatous disease. The patient had total colectomy in the right lower quadrant ileostomy. There are few mildly dilated fluid-filled distal small bowel loops just proximal to the ileostomy with gas and fluid, within the ostomy, no discrete transition point. No pneumatosis intestinalis or pneumoperitoneum. There is posterior displacement of the uterus, consistent with a total colectomy, mild distended and opacified. Urinary bladder is unremarkable. There are a few mildly prominent bilateral inguinal lymph nodes, likely reactive. Mild bilateral hip osteoarthritis. There is a transitional lumbosacral vertebral anatomy with partial sacralization at L5, grade 1 anterolisthesis L3-L4, age indeterminate, moderate compression deformity of T12 with mild bony at retropulsion and estimated 50% vertebral body height loss. There is an age indeterminate mild L3 superior endplate compression deformity of estimated 20%, edema by the height loss, so no significant bony retropulsion. Because of the fact that she has not had emptied her ileostomy for the last 4 days and the suspicion of a bowel obstruction, the patient will be transferred to [facility] to consult the surgical team and to continue the IV fluid, replenish her potassium and treat her urinary tract infection. BRUCE BAPTISTE MD DR: JESSICA/kameron JOB#: [id number] / [id number]
[2017-07-11 19:40] VITALS: BP 112/64
[2017-07-11] MEDS ORDERED: ALBUTEROL SULFATE 2.5 MG/3 ML NEBU. NEB SCH (20:00)
[2017-07-11] MEDS ORDERED: BUDESONIDE 0.5 MG/2 ML NEBU NEB SCH (20:00)
--- NOTE | 2017-07-11 20:01 | NUR ---
Dr Pacheco here to see pt. Pt being transferred to [facility] via EMS for small bowel obstruction. Report called to 4th floor BERNADETTE Bailey. Pt aware of transfer. Waiting on EMS
[2017-07-11] MEDS ORDERED: AMMONIUM LACTATE 12% TOPICAL LOTION 226GM BOTTLE. TP SCH (21:00)
[2017-07-11] MEDS ORDERED: busPIRone 5 MG TABLET. PO SCH (21:00)
[2017-07-11] MEDS ORDERED: HYDROcodone/APAP 7.5/325MG 1 TAB TABLET PO SCH (21:00)
[2017-07-11] MEDS ORDERED: tiZANidine 4 MG TABLET. PO SCH (21:00)
[2017-07-11] MEDS ORDERED: QUEtiapine 100 MG TABLET. PO SCH (21:00)
[2017-07-11] MEDS ORDERED: traZODone 100 MG TABLET. PO SCH (21:00)
[2017-07-11] MEDS ORDERED: GABAPENTIN 300 MG CAPSULE. PO SCH (21:00)
[2017-07-11] MEDS ORDERED: FLUTICASONE IH SCH (21:00)
[2017-07-11] MEDS ORDERED: SALMETEROL IH SCH (21:00)
--- NOTE | 2017-07-11 21:24 | NUR ---
EMS picked patient up. report given to EMS. belongings sent with patient.
[2017-07-12] MEDS ORDERED: QUEtiapine 25 MG TABLET. PO SCH (08:00)
[2017-07-12] MEDS ORDERED: DULoxetine HCL 30 MG CAPSULE.DR PO SCH (09:00)
[2017-07-12] MEDS ORDERED: CETIRIZINE HCL 10 MG TABLET PO SCH (09:00)
[2017-07-12] MEDS ORDERED: FLUTICASONE 50MCG/NASAL SPRAY 16GM BOTTLE. NS SCH (09:00)
[2017-07-12] MEDS ORDERED: ATORVASTATIN CALCIUM 10 MG TABLET. PO SCH (09:00)
[2017-07-12] MEDS ORDERED: hydroCHLOROthiazide 12.5 MG CAPSULE PO SCH (09:00)
[2017-07-12] MEDS ORDERED: METOPROLOL SUCC 24HR ER 50 MG TAB.ER.24H. PO SCH (09:00)
[2017-07-12] MEDS ORDERED: ROFLUMILAST 500 MCG TABLET PO SCH (09:00)
[2017-07-12] MEDS ORDERED: PANTOPRAZOLE 40 MG TABLET. PO SCH (09:00)
[2017-07-12] MEDS ORDERED: OXYBUTYNIN CHLORIDE 5 MG TABLET PO SCH (09:00)
--- NOTE | 2017-07-13 20:44 | CONS ---
DATE OF CONSULTATION: 07/11/2017 This late entry 07/11/2017 covers elements not covered in my initial note 07/11/2017. IDENTIFYING DATA: The patient is a 66-year-old female seen at bed [address], [address] [place] [address] for a psychiatric consult requested by Dr. Anderson on account of the patient's depression and suicide attempt by slashing her wrists bilaterally at the longterm. This is within the context of her diagnosis of schizoaffective disorder, depressed. The patient states she was despondent about her left proximal foot amputation, was getting more hopeless and slashed her wrist, but feels sorry she did that. She has since been diagnosed with small-bowel obstruction, has a UTI. She was initially referred to the [facility] but from the longterm, but presented to the ER, diagnosed with a small-bowel obstruction and UTI, admitted to [address] [place] [address] and I have been asked to consult from a psychiatric standpoint. The patient was seen individually, discussed with nursing staff, reviewed the chart. CHIEF COMPLAINT: "I will not try to hurt myself again." HISTORY OF PRESENT ILLNESS: The patient has a history of schizoaffective disorder, bipolar type for which has been treated for some time. More recently, she has been quite depressed about all of the above circumstances. Admits to feeling hopeless, helpless, worthless, resulting in her attempting the suicide noted above. Positive history of mood swings. PAST PSYCHIATRIC HISTORY: As above. CURRENT PSYCHOTROPICS: Invega Sustenna 117 mg every 4 weeks, Cymbalta 30 mg a day. DRUG ALLERGIES: OXYCODONE. FAMILY HISTORY: Noncontributory. SOCIAL HISTORY: No alcohol or drug abuse history noted. She has been , but has no children and used to work in housekeeping. MENTAL STATUS EXAM: The patient was seen individually evening of 07/11/2017. She is reasonably oriented. Speech coherent. Thought processes, goal directed. Mood is depressed. Affect is mood congruent. No active suicidal or homicidal ideation. Attention span short. Language function intact. Intellect average. Insight fair. Judgment intact to standard questioning when I met with her. IMPRESSION: Schizoaffective disorder, bipolar type, depressed; anxiety disorder, unspecified. Rest as above. PLAN: I would not recommend any change from a psychiatric standpoint. Apparently, the patient is being transferred to [facility] for the bowel obstruction evening of 07/11/2017. Further psychiatric care can be determined after she is medically and surgically stabilized. Dr. Anderson, thank you for the opportunity to participate in your patient's care. MAN Erin STROUD MD DR: ANIL/kameron JOB#: [id number] / [id number]
[2017-08-08] MEDS ORDERED: PALIPERIDONE PALMITATE 117 MG/0.75 ML IM SCH (09:00)
== END 2017-07-11 21:25 | disposition short-term general hospital (02) | DRG 872 ==
LOC: ER 18:31 → 1 SOUTH 23:30
PROVIDERS: ADMIT Internal Medicine; ATTEND Internal Medicine
DX: A41.9 Sepsis, unspecified organism (principal); K56.600 Partial intestinal obstruction, unspecified as to cause; G20 Parkinson's disease; F25.0 Schizoaffective disorder, bipolar type; N39.0 Urinary tract infection, site not specified; E87.6 Hypokalemia; F41.9 Anxiety disorder, unspecified; F63.9 Impulse disorder, unspecified; E78.5 Hyperlipidemia, unspecified; I10 Essential (primary) hypertension; M06.9 Rheumatoid arthritis, unspecified; J44.9 Chronic obstructive pulmonary disease, unspecified; H91.93 Unspecified hearing loss, bilateral; G47.00 Insomnia, unspecified; N85.4 Malposition of uterus; M16.0 Bilateral primary osteoarthritis of hip; Z90.49 Acquired absence of other specified parts of digestive tract; Z93.2 Ileostomy status; Z98.42 Cataract extraction status, left eye; Z98.41 Cataract extraction status, right eye; Z89.432 Acquired absence of left foot; Z87.891 Personal history of nicotine dependence; Z88.5 Allergy status to narcotic agent; Z90.89 Acquired absence of other organs; Z91.5 Personal history of self-harm
CPT/HCPCS: 36415; 74177; 80048; 81001; 83605; 84484; 85007; 85025; 87040; 87086; 87641; 93005; 94640; 96361; 96374; 96375; J0696; J1885; J2060; J2270; J2405; J7613; J7626; Q9967; 99285-25; J7030